=== PATIENT | female | born 1985 ===

== ENCOUNTER 2018-04-13 06:11 | Day surgery (SDC) | payer OTHER ==
[2018-04-13] MEDS ORDERED: EPINEPHrine 1:1000 Nasal Sol(30mL) ONE (06:46)
[2018-04-13] MEDS ORDERED: Lidocaine/Epinephrine 1% 1:100000 10 ML IJ ONE (06:47)
[2018-04-13] MEDS ORDERED: ceFAZolin IV 1 gm in Dextrose 1 GM/50 ML BAG IVPB ONE (06:47)
[2018-04-13] MEDS ORDERED: Midazolam 2 MG/2 ML VIAL ONE (07:27)
[2018-04-13] MEDS ORDERED: Propofol 10 mg/ml Inj (20 ML) ONE (07:28)
[2018-04-13] MEDS ORDERED: Phenylephrine 10 mg/ml Inj ONE (07:30)
[2018-04-13] MEDS ORDERED: ePHEDrine 50 mg/ml Inj ONE (07:30)
[2018-04-13] MEDS ORDERED: Succinylcholine Chloride 20 mg/ml Syr (5 ml) IV ONE (07:46)
[2018-04-13] MEDS ORDERED: Neostigmine Methylsulfate 3mg/3ml Syringe IV ONE (08:36)
[2018-04-13] MEDS ORDERED: Acetaminophen-Codeine 300/30 mg Tab PO PRN (08:44)
[2018-04-13] MEDS ORDERED: Dextrose 5%/0.45% NS 1,000 ML IV SCH (08:45)
[2018-04-13 11:02] VITALS: BP 113/65; PULSE 71; RESP 18; TEMP 97.5; O2SAT 100
--- NOTE | 2018-04-13 18:00 | OP ---
PROCEDURE DATE: 04/13/2018 PREOPERATIVE DIAGNOSES: Deviated septum, large turbinates. POSTOPERATIVE DIAGNOSES: Deviated septum, large turbinates. PROCEDURES: Septoplasty, endoscopic bilateral inferior turbinate reduction. SIGNIFICANT FINDINGS: Deviated septum, large inferior turbinates. DESCRIPTION OF PROCEDURE: The patient was brought into the room, placed in supine position. Anesthesia was initiated through an ET tube. The patient was draped in usual manner. Adrenaline-soaked pledgets were inserted into the nasal cavity, it remained there for five minutes and removed. The septum was injected with lidocaine with epinephrine on both sides. A Shaun incision was made on the left and mucoperichondrial flap was raised. A vertical incision was made in the cartilage leaving a 1.5 cm anterior and superior strut and mucoperichondrial flap was raised on the other side. Deviated portion of the bone and cartilage were removed using forceps and chisel. It was noted that there was a small perforation on the right flap as well as the left. The portion of these overlapped giving the patient a septal perforation somewhere along the border of the anterior to mid septum in the middle of the septum in the vertical dimension. A 0-degree scope was inserted through the nasal cavity. The inferior turbinates were noted to be enlarged and reduced in size using scissors first on the left and then on the right. Bleeding was controlled using suction cautery and stents were placed. The patient was taken off anesthesia and taken to recovery room in stable manner. Manpreet Matta MD
== END 2018-04-13 12:02 | disposition home or self-care (01) ==
LOC: C.SDS 06:11
PROVIDERS: ATTEND Otolaryngology
DX: J34.2 Deviated nasal septum (principal); J34.3 Hypertrophy of nasal turbinates
CPT/HCPCS: 30520; 30802; 88304; J0690; J2001; J2250; J2370; J2405; J2704; J2710; J3010; J7030; J7040